=== PATIENT | female | born 1960 | race Caucasian/White ===

== ENCOUNTER 2025-02-12 14:44 | Emergency (ER) | payer BC ==
[~2025-02-12] VITALS: Ht 154.9 cm; Wt 53.9 kg
[2025-02-12] MEDS ORDERED: ATEN50TA2 PO (15:08)
[2025-02-12] MEDS ORDERED: LISI2.5T9 PO (15:08)
[2025-02-12] MEDS ORDERED: CLON0.5T17 PO (15:08)
[2025-02-12] MEDS ORDERED: RIZA10TA58 PO (15:08)
[2025-02-12] MEDS ORDERED: LOVA20TA2 PO (15:08)
[2025-02-12] MEDS ORDERED: ROBA1000 PO (15:08)
[2025-02-12] MEDS ORDERED: NEUR100C PO (15:08)
[2025-02-12] MEDS: ONDANSETRON 4MG 2ML VIAL IV ONE (16:45)
[2025-02-12] MEDS: HYDROMORPHONE HCL 0.5 MG/0.5 ML SYRINGE IV PRN (16:45)
[2025-02-12 16:54] LABS: BASO # 0.0 10^3/uL (0.0-0.2); BASO % 0.7 % (0.0-1.0); EOS # 0.2 10^3/uL (0.0-0.5); EOS % 2.7 % (0.0-3.0); LYMPH # 1.9 10^3/uL (1.5-5.0); LYMPH % 32.5 % (24.0-44.0); MONO # 0.6 10^3/uL (0.0-0.8); MONO % 9.5 % (2.0-8.0); NEUTROPHILS # 3.2 10^3/uL (1.5-8.5); NEUTROPHILS % 54.1 % (36.0-66.0); PLATELET COUNT, AUTOMATED 323 10^3/uL (150-450)
[2025-02-12 16:55] LABS: KETONE, URINE AUTO RFX NEGATIVE (NEGATIVE); LEUKOCYTE ESTERASE UR AUTO RFX NEGATIVE (NEGATIVE); MUCUS, URINE RFX SMALL (NEGATIVE); NITRITE, URINE AUTO RFX NEGATIVE (NEGATIVE); RBC, URINE AUTO RFX 0 /HPF (0-3); SQUAM EPITHELIAL CELL UR AURFX 0 /HPF (0-6); WBC, URINE AUTO RFX 0 /HPF (0-3)
[2025-02-12 17:13] LABS: ALT/SGPT 33.0 U/L (7.0-40); AST/SGOT 36.0 U/L (<34); CALCIUM LEVEL 9.5 MG/DL (8.3-10.6); CARBON DIOXIDE LEVEL 28.0 MMOL/L (20-31); CHLORIDE LEVEL 103.0 MMOL/L (98-107); CREATININE FOR GFR 0.78 MG/DL (0.55-1.30); GLOMERULAR FILTRATION RATE 85.3 (>45); POTASSIUM SERUM 4.6 MMOL/L (3.5-5.1); SODIUM LEVEL 142.0 MMOL/L (136-145)
[2025-02-12 18:15] VITALS: BP 120/58; TEMP 97.8; O2SAT 97
[2025-02-12] MEDS ORDERED: RIZA10TA64 PO (18:26)
[2025-02-12] MEDS ORDERED: SUZE50TA PO (18:26)
[2025-02-12] MEDS ORDERED: GABA-1172 PO (18:26)
[2025-02-12] MEDS ORDERED: METH-1165 PO (18:26)
[2025-02-12] MEDS ORDERED: AMIT50TA PO (18:26)
[2025-02-12] MEDS ORDERED: DEXT1TAB19 PO (18:26)
[2025-02-12] MEDS ORDERED: GABA-1490 PO (18:26)
[2025-02-12] MEDS ORDERED: METF-838 PO (18:26)
[2025-02-12] MEDS ORDERED: CLON0.5T2 PO (18:26)
[2025-02-12] MEDS ORDERED: ZOLO100T PO (18:26)
[2025-02-12] MEDS ORDERED: HOME MED LIST COMPLETE! XX SCH (18:30)
== END 2025-02-12 18:30 | disposition home or self-care (01) ==
LOC: M ED 14:44
DX: R10.9 Unspecified abdominal pain (principal); I10 Essential (primary) hypertension; N04.9 Nephrotic syndrome with unspecified morphologic changes; E78.5 Hyperlipidemia, unspecified; Z88.6 Allergy status to analgesic agent
CPT/HCPCS: 74176; 80053; 81001; 83690; 85025; 96374; 96375; 96376; 99284; J1171; J2405